=== PATIENT | female | born 1990 | race Caucasian/White ===

== ENCOUNTER 2016-09-29 13:14 | Emergency (ER) | payer MEDICAID ==
[~2016-09-29] VITALS: Ht 167.6 cm; Wt 64.0 kg
[2016-09-29] MEDS ORDERED: FAMOTIDINE 20MG/2ML VIAL IV ONE (17:15)
[2016-09-29] MEDS ORDERED: SODIUM CHLORIDE 0.9% 1,000 ML IV ONE (17:15)
[2016-09-29] MEDS ORDERED: KETOROLAC 15MG/ML VIAL IV ONE (17:15)
[2016-09-29 17:31] LABS: BASOPHILS % 0.4 % (0.0-2.0); EOSINOPHILS % 0.7 % (0.0-5.0); HEMATOCRIT. 35.5 % (36.0-48.0); HEMOGLOBIN. 11.7 g/dL (12.0-16.0); LYMPHOCYTES % 44.9 % (20.0-50.0); MEAN CORPUSCULAR HEMOGLOBIN 25.6 pg (28.0-32.0); MEAN CORPUSCULAR VOLUME 77.4 fL (81.0-99.0); MEAN PLATELET VOLUME 7.7 fl (7.4-10.4); MONOCYTES % 6.5 % (2.0-8.0); NEUTROPHILS % 47.5 % (40.0-76.0); PLATELET 239 x1000/uL (130-400); RED BLOOD CELL COUNT 4.58 mill/uL (4.2-5.4); RED CELL DISTRIBUTION WIDTH 16.2 % (11.6-14.6)
[2016-09-29 17:45] LABS: CHLORIDE 104 mEq/L (98-107)
[2016-09-29 17:49] LABS: CARBON DIOXIDE 25 mEq/L (21-32)
[2016-09-29 18:02] LABS: CLARITY URINE CLEAR (CLEAR); COLOR URINE DARK YELLOW (YELLOW); GLUCOSE URINE NEGATIVE (NEGATIVE); KETONES URINE TRACE (NEGATIVE); LEUKOCYTE ESTERASE URINE NEGATIVE (NEGATIVE); NITRITE URINE NEGATIVE (NEGATIVE); OCCULT BLOOD URINE NEGATIVE (NEGATIVE); PROTEIN URINE 1+ (NEGATIVE); SPECIFIC GRAVITY URINE 1.042 (1.005-1.030)
[2016-09-29 19:07] VITALS: BP 111/69
== END 2016-09-29 19:19 | disposition home or self-care (01) ==
LOC: ER 15:27
DX: R11.2 Nausea with vomiting, unspecified (principal); R19.7 Diarrhea, unspecified; M54.5 Low back pain
CPT/HCPCS: 36415; 80053; 81001; 81025; 83690; 85025; 96361; 96374; 96375; 99284; J1885; J3490; J7030

== ENCOUNTER 2021-09-09 22:38 | Emergency (ER) | payer MEDICAID ==
[~2021-09-09] VITALS: Ht 167.6 cm; Wt 80.0 kg
[2021-09-10] MEDS ORDERED: HYDROCODONE/ACETAMINOPHEN 10/325MG TABLET PO ONE (02:15)
[2021-09-10 02:37] VITALS: BP 137/99
[2021-09-10] MEDS ORDERED: IBUP-2029 MT (05:06)
== END 2021-09-10 05:34 | disposition home or self-care (01) ==
LOC: ER 22:38
DX: K43.9 Ventral hernia without obstruction or gangrene (principal); K44.9 Diaphragmatic hernia without obstruction or gangrene
CPT/HCPCS: 74176; 81025; 99284

== ENCOUNTER 2023-03-09 17:21 | Emergency (ER) | payer MEDICAID ==
[~2023-03-09] VITALS: Ht 167.6 cm; Wt 75.0 kg
[~2023-03-09 17:21] MED LIST: IBUP-2029 MT
[2023-03-09 17:30] VITALS: TEMP 98.2; O2SAT 99
[2023-03-09] MEDS ORDERED: KETOROLAC 60MG/2ML VIAL IM STA (18:03)
[2023-03-09 18:32] LABS: CLARITY URINE CLOUDY (CLEAR); COLOR URINE YELLOW (YELLOW); GLUCOSE URINE NEGATIVE (NEGATIVE); KETONES URINE NEGATIVE (NEGATIVE); LEUKOCYTE ESTERASE URINE TRACE (NEGATIVE); NITRITE URINE NEGATIVE (NEGATIVE); OCCULT BLOOD URINE NEGATIVE (NEGATIVE); PROTEIN URINE NEGATIVE (NEGATIVE); SPECIFIC GRAVITY URINE 1.024 (1.005-1.030)
[2023-03-09 18:51] LABS: BACTERIA URINE 2+; RBC URINE 0-2 /hpf (0-2); SQUAMOUS EPITHELIAL CELL URINE 2+ /lpf (RARE/1+); WBC URINE 0-2 /hpf (0-2)
[2023-03-09] MEDS ORDERED: IBUP-2029 MT (20:05)
[2023-03-09] MEDS ORDERED: CYCL10TA21 MT (20:05)
[2023-03-09 20:18] VITALS: BP 134/89; PULSE 69; RESP 16
== END 2023-03-09 20:20 | disposition home or self-care (01) ==
LOC: ER 17:21
DX: M54.16 Radiculopathy, lumbar region (principal); Z98.890 Other specified postprocedural states
CPT/HCPCS: 99284; 71045; 81003; 81025; 96372; J1885

== ENCOUNTER 2024-06-12 19:20 | Emergency (ER) | payer MEDICAID ==
[~2024-06-12] VITALS: Ht 167.6 cm; Wt 81.6 kg
[~2024-06-12 19:20] MED LIST changes: +CYCL10TA21 MT
[2024-06-12 19:32] VITALS: O2SAT 100
[2024-06-12] MEDS ORDERED: NAPR-1176 MT (23:41)
[2024-06-12] MEDS ORDERED: METOCLOPRAMIDE HCL 5MG TABLET PO ONE (23:45)
[2024-06-13] MEDS: KETOROLAC 15MG/ML VIAL IM ONE (00:27)
[2024-06-13] MEDS: DIPHENHYDRAMINE 12.5MG/5ML UDC PO ONE (00:28)
[2024-06-13] MEDS: METOCLOPRAMIDE HCL 10MG TABLET PO NR (00:28)
[2024-06-13 00:47] VITALS: BP 132/98; PULSE 68; RESP 16; TEMP 36.9; O2SAT 100
== END 2024-06-13 00:12 | disposition home or self-care (01) ==
LOC: ER 19:20
DX: R51.9 Headache, unspecified (principal); Z79.1 Long term (current) use of non-steroidal anti-inflammatories (NSAID); Z79.899 Other long term (current) drug therapy; Z98.890 Other specified postprocedural states
CPT/HCPCS: 99285; 70450; 96372; J1885; J8597; Q0163